=== PATIENT | female | born 1975 ===

== ENCOUNTER → 2016-09-22 | Outpatient (CLI) | payer OTHER ==
--- NOTE | 2016-09-23 13:13 | MAMMOGRAPHY REPORT ---
BILATERAL DIGITAL SCREENING MAMMOGRAM TOMOSYNTHESIS WITH CAD: 09/22/2016 CLINICAL HISTORY: Routine screening. Patient has no complaints. TECHNIQUE: Breast tomosynthesis in addition to standard 2D mammography was performed. Current study was also evaluated with a Computer Aided Detection (CAD) system. COMPARISON: No prior exams were available for comparison. BREAST COMPOSITION: The tissue of both breasts is extremely dense, which lowers the sensitivity of m ammography. FINDINGS: There are multiple bilateral circumscribed masses scattered in the breast. There are diffu se bilateral microcalcifications. No obvious spiculated or irregular mass, focal area of architectur al distortion or discrete suspicious cluster or grouping of microcalcifications. IMPRESSION: ACR BI-RADS CATEGORY 0: INCOMPLETE EVALUATION: NEED ADDITIONAL IMAGING EVALUATION There are multiple bilateral circumscribed masses in the breasts and bilateral microcalcifications. Although these findings most likely represents bilateral cysts and fibrocystic changes, comparison to prior outside mammograms and/or ultrasounds would be useful to ensure stability. If the outside exa ms are unable to be obtained, consider whole breast ultrasound for additional screening (30 minutes). The patient will be called to schedule an appointment. Approximately 10% of breast cancers are not detected with mammography. A negative mammographic report should not delay biopsy if a clinically suggestive mass is present. Dayanna Higginbotham M.D. ay/:09/22/2016 17:29:58 Failure Analysis Technician: Yaneli TREVIÑO(Ky)(Trisha), [facility] letter sent: Need Priors 0 BI-RADS Code: ACR BI-RADS Category 0: Incomplete Evaluation: Need Additional Imaging Evaluation
== END | disposition home or self-care (01) ==
LOC: C.MAMM 15:51
PROVIDERS: ATTEND Internal Medicine
DX: Z12.31 Encounter for screening mammogram for malignant neoplasm of breast (principal); N63 Unspecified lump in breast; R92.0 Mammographic microcalcification found on diagnostic imaging of breast